=== PATIENT | male | born 1980 | race Two or more races ===

== ENCOUNTER 2016-04-01 18:12 | Emergency (ER) | payer OTHER ==
[~2016-04-01] VITALS: Ht 175.3 cm; Wt 72.6 kg
[2016-04-01 18:20] VITALS: BP 110/68
[2016-04-01 18:34] VITALS: BP 110/68
--- NOTE | 2016-04-01 18:42 | Emergency Room Report ---
History of Present Illness General Chief Complaint: Syncope Source: Patient Present Illness HPI Patient was brought in by paramedics for reports of syncopal episode Upon arrival the patient is awake and alert States that he would like to go home his was picking him up Patient reports that he has had multiple syncopal episodes usually with physical exam and the blood draw however this has happened without blood draw as well He reports that he was feeling prescription for his felt lightheaded And it had his syncopal episode at this time denies any headache denies any chest pain or shortness of breath denies any back or flank pain Allergies: Coded Allergies: PENICILLINS (Verified Allergy, Unknown, 04/01/16) Patient History Past Medical History: see triage record Pertinent Family History: none Reviewed Nursing Documentation: PMH: Agreed, PSxH: Agreed Nursing Documentation-PM Past Medical History: No Stated History Review of Systems All Other Systems: negative except mentioned in HPI Physical Exam Vital Signs Date Time Temp Pulse Resp B/P Pulse Ox O2 Delivery O2 Flow Rate FiO2 04/01/16 18:03 96.8 63 18 110/68 98 04/01/16 18:20 Room Air Sp02 EP Interpretation: reviewed, normal General Appearance: well appearing, no apparent distress Head: normocephalic, atraumatic Eyes: bilateral eye EOMI, bilateral eye PERRL ENT: hearing grossly normal, normal pharynx, TMs + canals normal, uvula midline Neck: full range of motion, supple, no meningismus, no bony tend Respiratory: lungs clear, normal breath sounds, no rhonchi, no respiratory distress, no retraction, no accessory muscle use Cardiovascular #1: normal peripheral pulses, regular rate, rhythm, no edema, no gallop, no JVD, no murmur Gastrointestinal: normal bowel sounds, non tender, soft, no mass, no organomegaly, non-distended, no guarding, no hernia, no pulsatile mass, no rebound Musculoskeletal: normal inspection Neurologic: oriented x3, responsive, undraped artist model III-XII nml as tested, motor strength/ tone normal, sensory intact Psychiatric: mood/affect normal Skin: normal color, no rash, warm/dry, palpation normal Lymphatic: normal inspection, no adenopathy Medical Decision Making Diagnostic Impression: Primary Impression: Syncope ER Course Patient is a fairly complex patient with multiple differential to consideration including but not limited to cardiac cardiopulmonary and vascular emergencies At this time the patient is refusing any EKG or blood work He remains hemodynamically stable with his blood pressure and heart rate Patient is awake alert GCS 15 Has the ability to refuse further workup And is aware of the consequences and leaving with refusal of care Last Vital Signs Date Time Temp Pulse Resp B/P Pulse Ox O2 Delivery O2 Flow Rate FiO2 04/01/16 18:34 96.8 79 18 110/68 98 Room Air Status: improved Disposition: AGAINST MEDICAL ADVICE Condition: Improved Patient Instructions: Syncope Additional Instructions: The standard of care for the passing out episode is to at least obtain EKG However he states that he of had multiple and refusing this exam also refusing any further workup Please understand that several medical conditions can be missed which can lead to worsening symptoms and possible He understand this and are leaving against advice and refusal of any further treatment, SPEEDY BURDICK D.O. Apr 01, 2016 18:42
== END 2016-04-01 19:00 | disposition left against medical advice (07) ==
LOC: EDBD 18:12 → EMR 19:00
DX: R55 Syncope and collapse (principal); Z88.0 Allergy status to penicillin
CPT/HCPCS: 99282